=== PATIENT | female | born 1935 | race Caucasian/White ===

== ENCOUNTER 2018-04-03 08:46 | Emergency (ER) | payer MEDICARE, OTHER ==
[~2018-04-03] VITALS: Ht 154.9 cm; Wt 69.9 kg
[2018-04-03 08:46] VITALS: BP 111/69
--- NOTE | 2018-04-03 09:34 | NUR ---
for discharge aftercare instructions given.Verbalized understanding. Home ambulatory. Stable
== END 2018-04-03 09:37 | disposition home or self-care (01) ==
LOC: ER 08:47
DX: S51.011D Laceration without foreign body of right elbow, subsequent encounter (principal); E78.00 Pure hypercholesterolemia, unspecified; E03.9 Hypothyroidism, unspecified; Z85.828 Personal history of other malignant neoplasm of skin; X58.XXXD Exposure to other specified factors, subsequent encounter
CPT/HCPCS: A4606; A6402; Z7502; Z7610

== ENCOUNTER 2020-09-19 19:40 | Emergency (ER) | payer MEDICARE, BC ==
[~2020-09-19] VITALS: Ht 160 cm; Wt 70.3 kg
--- NOTE | 2020-09-19 20:03 | NUR ---
PATIENT TO ER BED 17 C/O RIGHT RIB PAIN. PATIENT STATES THAT SHE HAD HIT HER RIGHT RIBS ON THE SINK AFTER HER HAD FELL ONTO HER.PATIENT IS AAOX.4 NO SOB .BREATHING EVENLY AND UNLABORED ON ROOM AIR. CONNECTED TO THE MONTIOR.
--- NOTE | 2020-09-19 20:13 | NUR ---
xray at bedside
--- NOTE | 2020-09-19 20:17 | NUR ---
PATIENT TO CT.
[2020-09-19] MEDS ORDERED: ACETAMINOPHEN ES 500 MG TABLET ONE ×2 (20:20→20:42)
[2020-09-19] MEDS ORDERED: ACETAMINOPHEN ES 500 MG TABLET PO ONE (20:30)
[2020-09-19 21:41] VITALS: BP 131/68
--- NOTE | 2020-09-19 21:41 | NUR ---
pt is medically stalbe for D/C. Patient discharged to home in stable condition. Written and verbal after care instructions given. Patient verbalizes understanding of instruction.
== END 2020-09-19 21:42 | disposition home or self-care (01) ==
LOC: ER 19:42
DX: S22.31XA Fracture of one rib, right side, initial encounter for closed fracture (principal); E78.00 Pure hypercholesterolemia, unspecified; E03.9 Hypothyroidism, unspecified; E66.01 Morbid (severe) obesity due to excess calories; Z68.27 Body mass index [BMI] 27.0-27.9, adult; Z95.1 Presence of aortocoronary bypass graft; Z90.710 Acquired absence of both cervix and uterus; Z90.49 Acquired absence of other specified parts of digestive tract; Z98.890 Other specified postprocedural states; Z87.442 Personal history of urinary calculi; W18.09XA Striking against other object with subsequent fall, initial encounter; Y93.89 Activity, other specified; Y92.89 Other specified places as the place of occurrence of the external cause; Y99.8 Other external cause status
CPT/HCPCS: 71250-TC; 72128-TC